=== PATIENT | male | born 1950 | race Two or more races ===

== ENCOUNTER 2016-12-07 02:31 | Emergency (ER) | payer OTHER, BC ==
[~2016-12-07 02:31] MED LIST: ANT12.5 PO; ASPIR 8181 MG PO; CIALIS5 M1 PO; DIOVAN160 MG PO; PROTONIX40 MG PO; VESICARE5 M1 PO
[2016-12-07 03:40] VITALS: BP 150/93
== END 2016-12-07 03:40 | disposition home or self-care (01) ==
LOC: ED 02:31
DX: N48.30 Priapism, unspecified (principal); K21.9 Gastro-esophageal reflux disease without esophagitis; I10 Essential (primary) hypertension

== ENCOUNTER 2017-04-10 07:11 | Emergency (ER) | payer OTHER, BC ==
[~2017-04-10] VITALS: Ht 165.1 cm; Wt 84.1 kg
[2017-04-10 09:32] VITALS: BP 152/75
== END 2017-04-10 09:32 | disposition home or self-care (01) ==
LOC: ED 07:11
DX: J20.9 Acute bronchitis, unspecified (principal); I10 Essential (primary) hypertension; K21.9 Gastro-esophageal reflux disease without esophagitis
CPT/HCPCS: J7512; J7613; J7644

== ENCOUNTER 2017-08-15 00:11 | Inpatient (IN) | payer OTHER, BC ==
[~2017-08-15] VITALS: Ht 165.1 cm; Wt 89.0 kg
[2017-08-15 01:01] LABS: BASOPHIL % 0.4 % (0-2); PLATELET COUNT 177 x10^3mcL (130-400); RED CELL DISTRIBUTION WIDTH 12.6 % (11.5-14.5)
[2017-08-15 01:11] LABS: CALCIUM 9.3 mg/dL (8.5-10.1); CARBON DIOXIDE 30.4 mmol/L (21-32); CHLORIDE SERUM 105 mmol/L (98-107); GFR1 > 60 mL/min; GLUCOSE SERUM 99 mg/dL (74-106); POTASSIUM SERUM 3.9 mmol/L (3.5-5.1); SODIUM SERUM 138 mmol/L (136-145)
[2017-08-15 01:15] LABS: ALBUMIN 3.7 g/dL (3.4-5.0); ALKALINE PHOSPHATASE 70 U/L (46-116); ALT/SGPT 34 U/L (16-63); AST/SGOT 26 U/L (15-37); BILIRUBIN TOTAL 0.48 mg/dL (0.20-1.00); TOTAL PROTEIN, SERUM 7.4 g/dL (6.4-8.2)
[2017-08-15] MEDS ORDERED: DIOVAN160 MG (01:56)
[2017-08-15] MEDS ORDERED: PROTONIX40 MG (01:57)
[2017-08-15 02:39] LABS: microscopic required? NO
[2017-08-15 03:14] VITALS: BP 167/78
[2017-08-15 03:31] LABS: UA SPECIFIC GRAVITY <=1.005 (1.005-1.035); urine erythrocyte NEGATIVE (NEGATIVE)
[2017-08-15 04:01] LABS: AMPHETAMINE QUAL UR NONE DETECTED (NEG <=1000)
[2017-08-15 04:12] LABS: MAGNESIUM 2.3 mg/dL (1.8-2.4); PHOSPHOROUS 4.2 mg/dL (2.5-4.9)
[2017-08-15 04:13] LABS: T3 TOTAL 0.9 ng/mL
[2017-08-15 04:26] LABS: FREE T4 0.91 ng/dL (0.76-1.46); FREE THYROXINE INDEX 2.7 ug/dL (1.4-4.5); T4(THYROXINE) 7.2 ug/dL (4.7-13.3)
[2017-08-15 05:36] VITALS: BP 120/79
[2017-08-15 07:38] LABS: BASOPHIL % 0.3 % (0-2); PLATELET COUNT 165 x10^3mcL (130-400); RED CELL DISTRIBUTION WIDTH 12.9 % (11.5-14.5)
[2017-08-15 07:47] LABS: CARBON DIOXIDE 27.3 mmol/L (21-32); CHLORIDE SERUM 105 mmol/L (98-107); CREATININE SERUM 0.9 mg/dL (0.7-1.3); GFR1 > 60 mL/min; GLUCOSE SERUM 105 mg/dL (74-106); MAGNESIUM 2.1 mg/dL (1.8-2.4); POTASSIUM SERUM 4.1 mmol/L (3.5-5.1); SODIUM SERUM 138 mmol/L (136-145)
[2017-08-15 09:50] VITALS: BP 132/85
[2017-08-15 14:00] VITALS: BP 104/60
[2017-08-15 17:25] VITALS: BP 135/84
[2017-08-15 21:30] VITALS: BP 140/78
[2017-08-16 06:01] VITALS: BP 128/79
[2017-08-16 07:05] LABS: BASOPHIL % 0.4 % (0-2); PLATELET COUNT 173 x10^3mcL (130-400)
[2017-08-16 09:09] VITALS: BP 133/61
[2017-08-16 10:14] VITALS: BP 131/77
[2017-08-16 14:00] VITALS: BP 146/80
[2017-08-16] MEDS ORDERED: ECO81 PO (16:32)
[2017-08-16] MEDS ORDERED: LIPI20 PO (16:34)
[2017-08-16 17:05] VITALS: BP 144/71
[2017-08-16 17:06] VITALS: BP 144/71
== END 2017-08-16 18:00 | disposition home or self-care (01) | DRG 206 ==
LOC: ED 00:11 → DU 02:14
PROVIDERS: Emergency Medicine; ADMIT Student in an Organized Health Care Education/Training Program
DX: M94.0 Chondrocostal junction syndrome [Tietze] (principal); I11.9 Hypertensive heart disease without heart failure; I16.0 Hypertensive urgency; M19.90 Unspecified osteoarthritis, unspecified site; K21.9 Gastro-esophageal reflux disease without esophagitis; E78.5 Hyperlipidemia, unspecified; E03.9 Hypothyroidism, unspecified; E66.9 Obesity, unspecified; Z68.32 Body mass index [BMI] 32.0-32.9, adult
CPT/HCPCS: 83880; 84439; 85378; J7030; Q0092

== ENCOUNTER 2018-02-12 18:08 | Emergency (ER) | payer OTHER, BC ==
[~2018-02-12] VITALS: Ht 167.6 cm; Wt 83.5 kg
[~2018-02-12 18:08] MED LIST changes: +DIOVAN160 MG; +ECO81 PO; +LIPI20 PO; +PROTONIX40 MG
[2018-02-12 18:11] VITALS: Ht 167.6 cm; Wt 83.5 kg
[2018-02-12 19:01] LABS: BASOPHIL % 0.3 % (0-2); PLATELET COUNT 154 x10^3mcL (130-400); RED CELL DISTRIBUTION WIDTH 14.5 % (11.5-14.5)
[2018-02-12 19:09] LABS: CALCIUM 8.2 mg/dL (8.5-10.1); CHLORIDE SERUM 103 mmol/L (98-107); CREATININE SERUM 1.2 mg/dL (0.7-1.3); GFR1 > 60 mL/min; GLUCOSE SERUM 127 mg/dL (74-106); SODIUM SERUM 137 mmol/L (136-145)
[2018-02-12 19:19] LABS: ALBUMIN 3.5 g/dL (3.4-5.0); ALKALINE PHOSPHATASE 64 U/L (46-116); ALT/SGPT 47 U/L (16-63); AST/SGOT 24 U/L (15-37); BILIRUBIN TOTAL 1.2 mg/dL (0.20-1.00); LIPASE 168 IU/L (73-393); TOTAL PROTEIN, SERUM 6.4 g/dL (6.4-8.2)
[2018-02-12 19:28] LABS: T4(THYROXINE) 4.5 ug/dL (4.7-13.3)
[2018-02-12 19:38] LABS: UA SPECIFIC GRAVITY 1.025 (1.005-1.035); microscopic required? YES; urine erythrocyte TRACE (NEGATIVE)
[2018-02-12 20:58] VITALS: BP 149/76
== END 2018-02-12 20:58 | disposition home or self-care (01) ==
LOC: ED 18:08
PROVIDERS: Emergency Medicine
DX: R53.83 Other fatigue (principal); R63.0 Anorexia; R11.2 Nausea with vomiting, unspecified; E78.00 Pure hypercholesterolemia, unspecified; K21.9 Gastro-esophageal reflux disease without esophagitis
CPT/HCPCS: 36415; Q0092

== ENCOUNTER 2019-09-26 07:22 | Emergency (ER) | payer BC ==
[~2019-09-26] VITALS: Ht 167.6 cm; Wt 87.5 kg
[2019-09-26 07:25] VITALS: BP 157/85
== END 2019-09-26 08:06 | disposition home or self-care (01) ==
LOC: ED 07:22
DX: J02.9 Acute pharyngitis, unspecified (principal); E78.00 Pure hypercholesterolemia, unspecified; K21.9 Gastro-esophageal reflux disease without esophagitis
CPT/HCPCS: J7512